=== PATIENT | female | born 1965 | race Two or more races ===

== ENCOUNTER 2020-05-01 10:35 | Emergency (ER) | payer SELFPAY ==
[~2020-05-01] VITALS: Ht 121.9 cm; Wt 59.0 kg
[2020-05-01] MEDS ORDERED: SODIUM CHLORIDE 0.9% 1,000 ML IV ONE (12:29)
[2020-05-01] MEDS ORDERED: ACETAMINOPHEN 325 MG TAB PO ONE (12:30)
[2020-05-01] MEDS ORDERED: ONDANSETRON HCL 4 MG/2 ML VIAL IV ONE (12:30)
[2020-05-01 14:08] VITALS: BP 108/80
[2020-05-01 14:08] LABS: Basophils # (auto) 0 10 ^3/uL (0-0.2); Basophils % (auto) 0.6 % (0.0-2.0); Eosinophils # (auto) 0 10 ^3/uL (0-0.8); Hematocrit 37.9 % (36.0-46.0); Lymphocytes # (auto) 0.9 10 ^3/uL (0.4-5.4); Mean Corpuscular Hemoglobin 29.2 pg (28.0-32.0); Mean Corpuscular Hgb Conc. 34.4 g/dL (32.0-36.0); Monocytes # (auto) 0.3 10 ^3/uL (0-1.3); Monocytes % (auto) 7.3 % (0.0-12.0); Neutrophils # (auto) 2.9 10 ^3/uL (1.6-8.6); Neutrophils % (auto) 70.1 % (37.0-80.0); Nucleated Red Blood Cells % 0.1 %; Platelet Count (auto) 164 10^3/uL (140-450); Red Blood Cells 4.46 10^6/uL (4.0-5.20); Red Cell Distribution Width 13.8 % (11.8-14.3); White Blood Cell 4.1 10^3/uL (4.4-10.8)
[2020-05-01 14:16] LABS: Urine Bacteria NONE SEEN /hpf (None Seen); Urine Blood Negative /uL (Negative); Urine Specific Gravity 1.006 (1.001-1.035); Urine WBC 1 /hpf (0 - 5)
[2020-05-01 14:30] LABS: Albumin 3.5 g/dL (3.4-5.0); BUN/Creatinine Ratio 12.2; Calcium 7.9 mg/dL (8.5-10.1); Potassium 3.9 mmol/L (3.5-5.1)
[2020-05-01 14:33] LABS: Bilirubin, Total 0.5 mg/dL (0.2-1.0); Total Protein 7.3 g/dL (6.4-8.2)
== END 2020-05-01 15:41 | disposition home or self-care (01) ==
LOC: ER 10:35
DX: E11.65 Type 2 diabetes mellitus with hyperglycemia (principal); R11.2 Nausea with vomiting, unspecified; E78.5 Hyperlipidemia, unspecified; I10 Essential (primary) hypertension; Z88.8 Allergy status to other drugs, medicaments and biological substances
CPT/HCPCS: 36415; 70450; 80053; 81001; 82962; 85025; 93005; 96361; 96374; 99285; J2405

== ENCOUNTER 2020-05-03 17:20 | Inpatient (IN) | payer SELFPAY ==
[~2020-05-03] VITALS: Ht 144.8 cm; Wt 57.5 kg
[2020-05-03] MEDS ORDERED: ACETAMINOPHEN 500 MG TAB PO ONE (17:45)
[2020-05-03 18:35] LABS: Basophils # (auto) 0 10 ^3/uL (0-0.2); Basophils % (auto) 0.2 % (0.0-2.0); Eosinophils # (auto) 0 10 ^3/uL (0-0.8); Hematocrit 37.4 % (36.0-46.0); Hemoglobin 12.7 g/dL (12.2-16.2); Lymphocytes # (auto) 1.1 10 ^3/uL (0.4-5.4); Lymphocytes % (auto) 23.8 % (10.0-50.0); Mean Corpuscular Hemoglobin 28.8 pg (28.0-32.0); Mean Corpuscular Volume 84.5 fL (80.0-100.0); Monocytes # (auto) 0.3 10 ^3/uL (0-1.3); Monocytes % (auto) 6.3 % (0.0-12.0); Neutrophils # (auto) 3.1 10 ^3/uL (1.6-8.6); Neutrophils % (auto) 69.7 % (37.0-80.0); Nucleated Red Blood Cells % 0.1 %; Platelet Count (auto) 194 10^3/uL (140-450); Red Blood Cells 4.43 10^6/uL (4.0-5.20); Red Cell Distribution Width 13.8 % (11.8-14.3); White Blood Cell 4.4 10^3/uL (4.4-10.8)
[2020-05-03] MEDS ORDERED: SODIUM CHLORIDE 0.9% 1,000 ML IV ONE (18:44)
[2020-05-03] MEDS ORDERED: InsuLIN REG 1unit/0.01ml Soln (100units/ml) IV ONE (18:45)
[2020-05-03 18:46] LABS: Albumin 3.3 g/dL (3.4-5.0); Anion Gap 10 (5-15); BUN/Creatinine Ratio 8.7; Blood Urea Nitrogen 6 mg/dL (7-18); Carbon Dioxide 23 mmol/L (21-32); Chloride 97 mmol/L (98-107); GFR African American 113 mL/min; GFR Non-African American 94 mL/min; Glucose 289 mg/dL (74-106); Potassium 3.8 mmol/L (3.5-5.1); Sodium 130 mmol/L (136-145)
[2020-05-03 18:49] LABS: Alanine Aminotransferase 30 U/L (13-56); Alkaline Phosphatase 79 U/L (45-117); Aspartate Aminotransferase 32 U/L (15-37); Bilirubin, Total 0.4 mg/dL (0.2-1.0); Total Protein 7.2 g/dL (6.4-8.2)
[2020-05-03 19:03] LABS: Lactic Acid w/Reflex 3.4 mmol/L (0.4-2.0)
[2020-05-03] MEDS ORDERED: INSULIN LANTUS (GLARGINE) 1 /0.01ml (100units/ml) SC ONE (19:30)
[2020-05-03] MEDS ORDERED: MORPHINE SULF INJ 2 MG/ML SYRINGE 1ML IV PRN ×3 (19:30→22:30)
[2020-05-03] MEDS ORDERED: NITROGLYCERIN 0.4 MG SL TAB SL PRN ×2 (19:30→22:30)
[2020-05-03 19:38] LABS: Urine Bacteria FEW /hpf (None Seen); Urine Blood Negative /uL (Negative); Urine Specific Gravity 1.007 (1.001-1.035); Urine WBC 3 /hpf (0 - 5)
--- NOTE | 2020-05-03 21:55 | NUR ---
Report received from. VALERIE ROY brought to bed. Patient instructed on need to notify staff immediately if any N/V or change in how she feels. Patient educated on hospital policies and visiting hrs. All questions and concerns addressed, patient verbalized understanding of all education and instruction.
[2020-05-03 22:00] VITALS: BP 119/65
[2020-05-03] MEDS ORDERED: GLIP10TA9 PO (22:06)
[2020-05-03] MEDS ORDERED: METF-370 PO (22:06)
[2020-05-03] MEDS ORDERED: LOSA-69 PO (22:06)
[2020-05-03] MEDS ORDERED: DEXTROSE (50%) 50ML SYRG IV PRN (22:30)
[2020-05-03] MEDS ORDERED: hydrALAZINE HCL 20 MG/ML VL IV PRN (22:30)
[2020-05-03] MEDS ORDERED: ALUM & MAG HYDROX-SIMETH LIQ(MAALOX) 30 ML PO PRN (22:30)
[2020-05-03] MEDS ORDERED: CALCIUM CHL 100MG/ML 500 MG in D5W 5% 100 ML IV ONE (22:30)
[2020-05-03] MEDS ORDERED: DOCUSATE SOD 100 MG CAP PO PRN (22:30)
[2020-05-03] MEDS ORDERED: HYDROcodone-ACET 5/325MG TAB PO PRN (22:30)
[2020-05-03] MEDS: SODIUM CHLORIDE 0.9% 1,000 ML IV SCH (23:13)
[2020-05-03] MEDS ORDERED: CALCIUM CHLOR(10%) 100MG/ML 10ML SYRINGE IV ONE (23:31)
[2020-05-04] MEDS: ACCU-CHEK COMFORT CURVE STRIP VI SCH ×4 (00:52→18:02)
[2020-05-04 05:00] VITALS: BP 125/59
[2020-05-04] MEDS: SODIUM CHLORIDE 0.9% 1,000 ML IV SCH ×2 (05:12→08:48)
[2020-05-04] MEDS: InsuLIN REG 1unit/0.01ml Soln (100units/ml) SC SCH ×4 (05:58→18:02)
[2020-05-04 06:00] LABS: Basophils # (auto) 0 10 ^3/uL (0-0.2); Basophils % (auto) 0.3 % (0.0-2.0); Eosinophils # (auto) 0 10 ^3/uL (0-0.8); Hematocrit 34.9 % (36.0-46.0); Hemoglobin 11.7 g/dL (12.2-16.2); Lymphocytes # (auto) 1.1 10 ^3/uL (0.4-5.4); Lymphocytes % (auto) 25.9 % (10.0-50.0); Mean Corpuscular Hemoglobin 28.5 pg (28.0-32.0); Mean Corpuscular Hgb Conc. 33.5 g/dL (32.0-36.0); Mean Corpuscular Volume 84.9 fL (80.0-100.0); Monocytes # (auto) 0.2 10 ^3/uL (0-1.3); Monocytes % (auto) 5.5 % (0.0-12.0); Neutrophils % (auto) 68.3 % (37.0-80.0); Nucleated Red Blood Cells % 0.5 %; Platelet Count (auto) 188 10^3/uL (140-450); Red Blood Cells 4.11 10^6/uL (4.0-5.20); Red Cell Distribution Width 13.9 % (11.8-14.3); White Blood Cell 4.3 10^3/uL (4.4-10.8)
[2020-05-04 06:20] LABS: Partial Thromboplastin Time 28.8 sec (23.64-32.05)
[2020-05-04 06:21] LABS: Potassium 3.5 mmol/L (3.5-5.1)
[2020-05-04 06:40] LABS: Albumin 2.9 g/dL (3.4-5.0); Bilirubin, Total 0.3 mg/dL (0.2-1.0); Phosphorus 3.2 mg/dL (2.5-4.90); Total Protein 6.4 g/dL (6.4-8.2)
[2020-05-04 08:00] VITALS: BP 117/59
[2020-05-04] MEDS: CALCIUM W/VIT D (600MG/400IU) TAB PO SCH ×2 (08:20→18:01)
[2020-05-04] MEDS: cefTRIAXone 1GM/50ML D5W 50 ML IV SCH (08:48)
[2020-05-04 09:00] VITALS: BP 117/59
[2020-05-04] MEDS: AZITHROMYCIN 500MG/ 250ML 250 ML IV SCH (09:56)
[2020-05-04] MEDS: LOSARTAN POTASSIUM 50 MG TAB PO SCH (09:57)
[2020-05-04] MEDS: ENOXAPARIN SOD 40 MG/0.4 ML SYRINGE SC SCH (09:57)
[2020-05-04] MEDS: FAMOTIDINE 20 MG TAB PO SCH ×2 (09:57→21:59)
--- NOTE | 2020-05-04 10:55 | NUR ---
Made MD Zhou aware of spiking temps despite cooling measures. No PRN available. Per STAT orders to do COVID swab and tx patient to isolation Wing. Will implement orders.
--- NOTE | 2020-05-04 11:05 | NUR ---
Patient transferred to COVID unit as per MD order. Per hide measuring machine operator Nahid transfer patient immediately, call COVID RN post transfer for report.
[2020-05-04] MEDS ORDERED: FUROSEMIDE 40 MG/4 ML VIAL IV ONE (11:15)
[2020-05-04] MEDS ORDERED: guaiFENesin-DM 100/10mg/5ml SYR PO PRN (11:15)
--- NOTE | 2020-05-04 12:00 | NUR ---
PT ARRIVAL TO UNIT. NO DISTRESS NOTED AT TIME OF ARRIVAL PT ON ROOM AIR. VS WNL. PT TRANSFERRED WITH THE HELP OF STAFF TO ROOM 240-B
--- NOTE | 2020-05-04 12:11 | NUR ---
REPORT RECEIVED FROM EAMON PEREZ
[2020-05-04] MEDS: ALBUTEROL SULF HFA 90MCG INH 200DOSE IN SCH ×2 (14:00→21:59)
--- NOTE | 2020-05-04 14:50 | NUR ---
PT TEMPERATURE 103.1 COOLING MEASURES INITIATED AND ACETAMINOPHEN ADMINISTERED
[2020-05-04] MEDS: ACETAMINOPHEN 500 MG TAB PO PRN (15:17)
--- NOTE | 2020-05-04 16:10 | NUR ---
TEMP REASSESSMENT TEMP 100.3. COOLING MEASURE CONTINUED WILL CONTINUE TO MONITOR
[2020-05-04 17:00] VITALS: BP 91/58
[2020-05-04] MEDS ORDERED: MULT1TAB61 PO (17:26)
[2020-05-04] MEDS ORDERED: ONDA-144 PO (17:26)
[2020-05-04] MEDS ORDERED: ATOR10TA52 PO (17:33)
[2020-05-04 18:02] VITALS: BP 117/59
--- NOTE | 2020-05-04 18:22 | NUR ---
PT CURRENT VITAL SIGNS BP 88/48 WITH REDRAW 91/52 SPO2 90%. PT PUT ON 2L NC WITH SPO2 95% TEMP: 99.2 RR:18 HR: 88
--- NOTE | 2020-05-04 18:36 | NUR ---
PT SUCCESSFULLY MOVED TO ROOM 237, NO DISTRESS NOTED DURING TRANSFER. PT AMBULATED WITH STEADY GAIT.
--- NOTE | 2020-05-04 18:36 | NUR ---
PAGED ON-CALL HOSPITALIST RE: HYPOTENSION. PT CURRENT BP 91/44. PREVIOUS READING 82/48
--- NOTE | 2020-05-04 18:42 | NUR ---
RETURNED PAGE NEW ORDERS RECIEVED FOR 500ML BOLUS. WILL IMPLEMENT ORDERS STAT
[2020-05-04] MEDS ORDERED: SODIUM CHLORIDE 0.9% 500 ML IV ONE (19:00)
[2020-05-04] MEDS: ONDANSETRON HCL 4 MG/2 ML VIAL IV PRN (19:02)
--- NOTE | 2020-05-04 19:12 | NUR ---
500ML BOLUS COMPLETE REPEAT B/P 116/70
[2020-05-04 20:52] VITALS: BP 114/71
--- NOTE | 2020-05-04 21:59 | NUR ---
MDI ADMINISTERED BY CHRIS LOFTON.
[2020-05-05] MEDS: ACCU-CHEK COMFORT CURVE STRIP VI SCH ×4 (00:06→16:59)
[2020-05-05] MEDS: InsuLIN REG 1unit/0.01ml Soln (100units/ml) SC SCH ×4 (00:17→17:33)
[2020-05-05 00:22] VITALS: BP 118/62
[2020-05-05 05:24] VITALS: BP 128/77
[2020-05-05] MEDS: ALBUTEROL SULF HFA 90MCG INH 200DOSE IN SCH ×3 (05:27→22:00)
--- NOTE | 2020-05-05 05:27 | NUR ---
MDI ADMINISTERED BY CHRIS LOFTON, PT WITH SPO2 96%, HR 78, RR 16. WILL CONTINUE TO MONITOR PT.
[2020-05-05] MEDS: ACETAMINOPHEN 500 MG TAB PO PRN ×3 (05:28→20:00)
--- NOTE | 2020-05-05 07:00 | NUR ---
Closing Note Patient lying in bed, awake and alert. Cooling measures remain in place, temperature reassessment at 102.3 Fahrenheit after Tylenol, will make dayshift RN aware. Bed in lowest locked position, side rails up x2, call light within reach. Will endorse care to dayshift RN.
--- NOTE | 2020-05-05 07:30 | NUR ---
Opening Shift Note Assumed care of patient, awake and alert. No S/S of distress,SOB with activity, denies pain. Instructed on POC and to call for assist PRN, will continue to monitor for changes Q1hr and PRN.
[2020-05-05 09:07] VITALS: BP 110/57
[2020-05-05] MEDS ORDERED: ENOXAPARIN SOD 40 MG/0.4 ML SYRINGE SC SCH (10:00)
[2020-05-05] MEDS: CALCIUM W/VIT D (600MG/400IU) TAB PO SCH ×2 (10:32→16:59)
[2020-05-05] MEDS: ZINC SULFATE 220mg CAP or TAB PO SCH (10:33)
[2020-05-05] MEDS: AZITHROMYCIN 500MG/ 250ML 250 ML IV SCH (10:33)
[2020-05-05] MEDS: FAMOTIDINE 20 MG TAB PO SCH ×2 (10:33→21:57)
[2020-05-05] MEDS: cefTRIAXone 1GM/50ML D5W 50 ML IV SCH (10:33)
[2020-05-05] MEDS: CHOLECALCIFEROL (VITD3) 1,000IU=25mCg TAB PO SCH (10:34)
[2020-05-05] MEDS: ENOXAPARIN SOD 40 MG/0.4 ML SYRINGE SC SCH ×2 (10:34→21:57)
[2020-05-05] MEDS: LOSARTAN POTASSIUM 50 MG TAB PO SCH (10:37)
[2020-05-05 13:16] LABS: Alanine Aminotransferase 28 U/L (13-56); Albumin 2.8 g/dL (3.4-5.0); Anion Gap 9 (5-15); Aspartate Aminotransferase 35 U/L (15-37); BUN/Creatinine Ratio 8.1; Bilirubin, Direct 0.1 mg/dL (0-0.2); Blood Urea Nitrogen 5 mg/dL (7-18); Calcium 7.6 mg/dL (8.5-10.1); Carbon Dioxide 25 mmol/L (21-32); Chloride 100 mmol/L (98-107); GFR African American 128 mL/min; GFR Non-African American 106 mL/min; Glucose 318 mg/dL (74-106); Potassium 3.1 mmol/L (3.5-5.1); Sodium 134 mmol/L (136-145); Uric Acid 1.8 mg/dL (2.6-6.0)
[2020-05-05 13:26] LABS: Alkaline Phosphatase 59 U/L (45-117); Bilirubin, Total 0.3 mg/dL (0.2-1.0); Total Protein 6.8 g/dL (6.4-8.2)
[2020-05-05 13:30] VITALS: BP 90/73
[2020-05-05 17:00] VITALS: BP 114/73
[2020-05-05] MEDS ORDERED: FUROSEMIDE 20 MG/2 ML VIAL IV ONE (17:15)
[2020-05-05] MEDS ORDERED: POTASSIUM CHL 20MEQ/100ML 100 ML IV ONE (17:15)
[2020-05-05] MEDS ORDERED: DexAMETHasone 4 MG TAB PO ONE (17:15)
[2020-05-05] MEDS ORDERED: POTASSIUM CHL 20 Meq TABLET PO ONE (18:00)
[2020-05-05] MEDS: FUROSEMIDE 20 MG/2 ML VIAL IV SCH (18:00)
[2020-05-05] MEDS: SOD CHL 0.9%/ KCL 40MEQ 1,000 ML IV SCH (18:22)
--- NOTE | 2020-05-05 19:15 | NUR ---
OPENING SHIFT NOTE: ASSUMED CARE OF PATIENT. PATIENT AWAKE AND ALERT AND ORIENTED X 4, NO S/S OF SOB OR DISTRESS. BED IN LOWEST LOCKED POSITION WITH TWO SIDE RAILS RAISED AND CALL [place] WITHIN REACH. O2 SATURATIONS 96% ON 2L NC WITH RESPIRATIONS EVEN AND UNLABORED. PROPER ISOLATION PRECAUTIONS IN PLACE AND ASSESSMENT DONE WITH PROVIDED PPE. INSTRUCTED ON POC AND ENCOURAGED TO USE CALL [place] FOR ASSISTANCE, ALL QUESTIONS AND CONCERNS ADDRESSED, PATIENT VERBALIZES UNDERSTANDING. WILL CONTINUE TO MONITOR Q1 HR AND PRN.
[2020-05-05 20:00] VITALS: BP_SYST 121; BP_SYST 147; BP_SYST 98; BP_DIAS 57; BP_DIAS 69; BP_DIAS 71
--- NOTE | 2020-05-05 20:00 | NUR ---
TEMP 100.8 F, COOLING MEASURES IN PLACE AND TYLENOL GIVEN, SEE EMAR FOR DETAILS. WILL CONTINUE TO MONITOR
[2020-05-05] MEDS: DexAMETHasone 4 MG TAB PO SCH (21:57)
[2020-05-06] VITALS (7 sets, daily range): BP systolic 105–142; BP diastolic 60–93
[2020-05-06] MEDS: ALBUTEROL SULF HFA 90MCG INH 200DOSE IN SCH ×3 (06:24→22:40)
[2020-05-06] MEDS: FUROSEMIDE 20 MG/2 ML VIAL IV SCH ×2 (06:24→18:13)
[2020-05-06] MEDS: ACCU-CHEK COMFORT CURVE STRIP VI SCH ×4 (06:24→18:23)
--- NOTE | 2020-05-06 06:24 | NUR ---
MDI ADMINISTERED BY CHRIS CASTANEDA, SPO2 97% AND HR 68.
[2020-05-06] MEDS: SOD CHL 0.9%/ KCL 40MEQ 1,000 ML IV SCH ×2 (06:25→22:39)
[2020-05-06] MEDS: InsuLIN REG 1unit/0.01ml Soln (100units/ml) SC SCH ×4 (06:25→18:28)
[2020-05-06 06:51] LABS: Basophils # (auto) 0 10 ^3/uL (0-0.2); Eosinophils # (auto) 0 10 ^3/uL (0-0.8); Hematocrit 36.7 % (36.0-46.0); Hemoglobin 12.4 g/dL (12.2-16.2); Lymphocytes # (auto) 0.5 10 ^3/uL (0.4-5.4); Lymphocytes % (auto) 12.2 % (10.0-50.0); Mean Corpuscular Hemoglobin 28.7 pg (28.0-32.0); Mean Corpuscular Hgb Conc. 33.8 g/dL (32.0-36.0); Mean Corpuscular Volume 84.8 fL (80.0-100.0); Monocytes # (auto) 0.1 10 ^3/uL (0-1.3); Monocytes % (auto) 3.2 % (0.0-12.0); Neutrophils # (auto) 3.7 10 ^3/uL (1.6-8.6); Neutrophils % (auto) 84.6 % (37.0-80.0); Nucleated Red Blood Cells % 0.2 %; Platelet Count (auto) 246 10^3/uL (140-450); Red Blood Cells 4.33 10^6/uL (4.0-5.20); Red Cell Distribution Width 13.7 % (11.8-14.3); White Blood Cell 4.4 10^3/uL (4.4-10.8)
[2020-05-06 07:16] LABS: Potassium 4.3 mmol/L (3.5-5.1)
--- NOTE | 2020-05-06 07:20 | NUR ---
OPENING NOTE ASSUMED CARE OF PT. ALERT AND ORIENTED. NO S/S OF SOB/DISTRESS NOTED. BED SET TO LOWEST POSITION/LOCKED. BEDSIDE RAILS UP X2. CALL LIGHT WITHIN REACH. INSTRUCTED PATIENT TO CALL FOR ASSISTANCE. UPDATED ON POC. PT VERBALIZED UNDERSTANDING. WILL CONTINUE TO MONITOR Q 1HR AND PRN.
[2020-05-06 07:37] LABS: Albumin 2.8 g/dL (3.4-5.0); BUN/Creatinine Ratio 18.9; Calcium 8.3 mg/dL (8.5-10.1); Magnesium 2.5 mg/dL (1.6-2.6)
[2020-05-06 07:40] LABS: Bilirubin, Total 0.5 mg/dL (0.2-1.0); Phosphorus 3.3 mg/dL (2.5-4.90); Total Protein 7.1 g/dL (6.4-8.2)
[2020-05-06] MEDS: CALCIUM W/VIT D (600MG/400IU) TAB PO SCH ×2 (08:00→18:14)
[2020-05-06] MEDS: cefTRIAXone 1GM/50ML D5W 50 ML IV SCH (10:06)
[2020-05-06] MEDS: AZITHROMYCIN 500MG/ 250ML 250 ML IV SCH (10:07)
[2020-05-06] MEDS: ZINC SULFATE 220mg CAP or TAB PO SCH (10:07)
[2020-05-06] MEDS: LOSARTAN POTASSIUM 50 MG TAB PO SCH (10:08)
[2020-05-06] MEDS: FAMOTIDINE 20 MG TAB PO SCH ×2 (10:08→22:40)
[2020-05-06] MEDS: CHOLECALCIFEROL (VITD3) 1,000IU=25mCg TAB PO SCH (10:08)
[2020-05-06] MEDS: DexAMETHasone 4 MG TAB PO SCH ×2 (10:08→22:40)
[2020-05-06] MEDS: ENOXAPARIN SOD 40 MG/0.4 ML SYRINGE SC SCH ×2 (10:09→22:42)
--- NOTE | 2020-05-06 12:45 | NUR ---
MD DR. BATISTA AT BEDSIDE DISCUSSED POC WITH PATIENT. PER MD KEEP PATIENT O2 SATURATION ABOVE 93%
[2020-05-06] MEDS: LORazepam 0.5 MG TAB PO PRN (18:53)
--- NOTE | 2020-05-06 19:30 | NUR ---
OPENING SHIFT NOTE: ASSUMED CARE OF PATIENT. PATIENT IS RESTING WITH EYES CLOSED, RESPIRATIONS EVEN AND UNLABORED, NO S/S OF SOB OR DISTRESS. 02 SATURATION 96% ON 2L NC. PROPER ISOLATION PRECAUTIONS IN PLACE WITH BED IN LOWEST LOCKED POSITION WITH TWO DRAMATIC ARTS HISTORIAN RAILS RAISED AND CALL [place] WITHIN REACH. WILL CONTINUE TO MONITOR Q1 HR AND PRN.
--- NOTE | 2020-05-06 22:30 | NUR ---
DAUGHTER NOHEMI CALLED AND PROVIDED CORRECT PASSWORD, UPDATED ON POC, ALL QUESTIONS AND CONCERNS ADDRESSED.
--- NOTE | 2020-05-06 22:40 | NUR ---
MDI ADMINISTERED BY CHRIS CASTANEDA.
[2020-05-06] MEDS: INSULIN LANTUS (GLARGINE) 1 /0.01ml (100units/ml) SC SCH (22:41)
[2020-05-07] MEDS: LORazepam 0.5 MG TAB PO PRN (01:21)
[2020-05-07 05:15] VITALS: BP 121/70
[2020-05-07] MEDS: FUROSEMIDE 20 MG/2 ML VIAL IV SCH ×2 (05:48→18:28)
[2020-05-07] MEDS: ALBUTEROL SULF HFA 90MCG INH 200DOSE IN SCH ×3 (05:48→22:27)
--- NOTE | 2020-05-07 06:20 | NUR ---
PATIENT STATES "I FEEL LIKE I CAN'T CATCH MY BREATH, AND IT'S HARDER TO BREATHE THAN YESTERDAY." RESPIRATIONS ARE SHALLOW, EVEN, AND UNLABORED. O2 SATURATION WAS 89% ON 2L NC, NOW AT 92% ON 5L NC. MDI ADMINISTERED AND PATIENT IS SELF PRONING AND SAYS SHE FEELS SOME RELIEF. WILL CONTINUE TO MONITOR
[2020-05-07] MEDS: ACCU-CHEK COMFORT CURVE STRIP VI SCH ×4 (06:21→18:27)
[2020-05-07] MEDS: InsuLIN REG 1unit/0.01ml Soln (100units/ml) SC SCH ×4 (06:23→18:58)
[2020-05-07 06:37] LABS: Basophils # (auto) 0 10 ^3/uL (0-0.2); Basophils % (auto) 0.1 % (0.0-2.0); Eosinophils # (auto) 0 10 ^3/uL (0-0.8); Hematocrit 35.6 % (36.0-46.0); Hemoglobin 12.1 g/dL (12.2-16.2); Lymphocytes # (auto) 0.7 10 ^3/uL (0.4-5.4); Lymphocytes % (auto) 10.6 % (10.0-50.0); Mean Corpuscular Hemoglobin 28.5 pg (28.0-32.0); Mean Corpuscular Hgb Conc. 34.1 g/dL (32.0-36.0); Mean Corpuscular Volume 83.5 fL (80.0-100.0); Monocytes # (auto) 0.4 10 ^3/uL (0-1.3); Neutrophils # (auto) 5.4 10 ^3/uL (1.6-8.6); Neutrophils % (auto) 83.3 % (37.0-80.0); Platelet Count (auto) 312 10^3/uL (140-450); Red Blood Cells 4.26 10^6/uL (4.0-5.20); Red Cell Distribution Width 13.7 % (11.8-14.3); White Blood Cell 6.4 10^3/uL (4.4-10.8)
[2020-05-07 06:44] LABS: Potassium 4.5 mmol/L (3.5-5.1)
[2020-05-07 07:12] LABS: Albumin 2.9 g/dL (3.4-5.0); BUN/Creatinine Ratio 19.4; Bilirubin, Total 0.3 mg/dL (0.2-1.0); CRP High Sensitivity 7.3 mg/dL (< 0.3); Calcium 8.7 mg/dL (8.5-10.1); Magnesium 2.5 mg/dL (1.6-2.6); Phosphorus 4.1 mg/dL (2.5-4.90); Total Protein 7.1 g/dL (6.4-8.2)
[2020-05-07 08:00] VITALS: BP 139/89
[2020-05-07] MEDS ORDERED: methylPREDNISolone SOD SUCC 40 MG/ML VL IV ONE (13:30)
[2020-05-07] MEDS ORDERED: TOCILIZUMAB 400 MG in SODIUM CHL 0.9% 80 ML IV ONE (13:30)
[2020-05-07] MEDS ORDERED: diphenhdrAMINE HCL 50 MG/1 ML VL IV ONE (13:30)
[2020-05-07] MEDS ORDERED: ACETAMINOPHEN 650 mg PER 20 mL UD PO ONE (13:30)
[2020-05-07] MEDS: CALCIUM W/VIT D (600MG/400IU) TAB PO SCH ×2 (13:35→18:27)
[2020-05-07] MEDS: SOD CHL 0.9%/ KCL 40MEQ 1,000 ML IV SCH ×2 (13:36→22:35)
[2020-05-07] MEDS: ZINC SULFATE 220mg CAP or TAB PO SCH (13:36)
[2020-05-07] MEDS: cefTRIAXone 1GM/50ML D5W 50 ML IV SCH (13:36)
[2020-05-07] MEDS: FAMOTIDINE 20 MG TAB PO SCH ×2 (13:37→22:00)
[2020-05-07] MEDS: CHOLECALCIFEROL (VITD3) 1,000IU=25mCg TAB PO SCH (13:37)
[2020-05-07] MEDS: DexAMETHasone 4 MG TAB PO SCH ×2 (13:37→22:26)
[2020-05-07] MEDS: LOSARTAN POTASSIUM 50 MG TAB PO SCH (13:37)
[2020-05-07] MEDS: AZITHROMYCIN 250 MG TAB PO SCH (13:38)
--- NOTE | 2020-05-07 14:30 | NUR ---
Nutrition Assessment Notes please see attached link for complete assessment Est. Needs BW 57 [id number] kcals (223-25 kcal/kgBW). 57-62 gms/day (1.0-1.1gm/kgBW). Will continue to monitor pertinent labs and reassess nutrient need prn. Addendum: 05/07/20 at [address] Amended: Links added.
[2020-05-07 15:27] VITALS: BP 120/67
[2020-05-07] MEDS: metFORMIN HYDROCHLORIDE 500 MG TAB PO SCH (18:48)
[2020-05-07] MEDS: glipiZIDE 5 MG TAB PO SCH (18:49)
[2020-05-07 19:18] VITALS: BP 125/66
--- NOTE | 2020-05-07 19:50 | NUR ---
Opening Shift Note Assumed care of patient, awake and alert. No S/S of distress/SOB or pain. Instructed on POC and to call for assist PRN, will continue to monitor for changes Q1hr and PRN.BED IN LOW POSITION AND CALL LIGHT WITHIN REACH
[2020-05-07 22:00] VITALS: BP 106/56
[2020-05-07] MEDS: ENOXAPARIN SOD 60 MG/0.6 ML SYRINGE SC SCH (22:27)
--- NOTE | 2020-05-07 22:27 | NUR ---
educated patient on how to use IS patient verbalized understanding.
[2020-05-07] MEDS: INSULIN LANTUS (GLARGINE) 1 /0.01ml (100units/ml) SC SCH (22:36)
[2020-05-08] MEDS: InsuLIN REG 1unit/0.01ml Soln (100units/ml) SC SCH ×5 (00:32→23:51)
--- NOTE | 2020-05-08 01:02 | NUR ---
patient running bradycardia in the 40's-50's heart rate. patient denies sob distress or pain. awake and alert. per telemonitor diego patient has been running bradycardia the night before. informed patient to call assistance. patient verbalized understanding.
[2020-05-08 05:03] VITALS: BP 129/79
[2020-05-08] MEDS: ALBUTEROL SULF HFA 90MCG INH 200DOSE IN SCH ×4 (05:31→22:07)
[2020-05-08] MEDS: FUROSEMIDE 20 MG/2 ML VIAL IV SCH ×2 (05:32→17:35)
[2020-05-08] MEDS: ACCU-CHEK COMFORT CURVE STRIP VI SCH ×5 (05:33→23:49)
--- NOTE | 2020-05-08 05:33 | NUR ---
MDI ADMINISTERED BY CHRIS BAY .
[2020-05-08] MEDS: glipiZIDE 5 MG TAB PO SCH ×2 (06:36→17:36)
--- NOTE | 2020-05-08 07:03 | NUR ---
Report given to dayshift RN. Patient denies sob distress or pain.
--- NOTE | 2020-05-08 07:30 | NUR ---
Opening Shift Note Assumed care of patient, awake, alert, and oriented. No S/S of distress/SOB or pain. Bed in lowest/locked position, bed rails up x2, call light within reach. Instructed on POC and to call for assist PRN. Will continue to monitor for changes Q1hr and PRN.
[2020-05-08 09:00] VITALS: BP 116/76
[2020-05-08] MEDS: ZINC SULFATE 220mg CAP or TAB PO SCH (09:03)
[2020-05-08] MEDS: LOSARTAN POTASSIUM 50 MG TAB PO SCH (09:03)
[2020-05-08] MEDS: CALCIUM W/VIT D (600MG/400IU) TAB PO SCH ×2 (09:03→17:36)
[2020-05-08] MEDS: ENOXAPARIN SOD 60 MG/0.6 ML SYRINGE SC SCH ×2 (09:04→22:32)
[2020-05-08] MEDS: AZITHROMYCIN 250 MG TAB PO SCH (09:04)
[2020-05-08] MEDS: DexAMETHasone 4 MG TAB PO SCH ×2 (09:04→22:32)
[2020-05-08] MEDS: CHOLECALCIFEROL (VITD3) 1,000IU=25mCg TAB PO SCH (09:04)
[2020-05-08] MEDS: cefTRIAXone 1GM/50ML D5W 50 ML IV SCH (10:32)
[2020-05-08] MEDS: metFORMIN HYDROCHLORIDE 500 MG TAB PO SCH ×2 (10:32→17:35)
[2020-05-08] MEDS: FAMOTIDINE 20 MG TAB PO SCH ×2 (10:33→22:32)
[2020-05-08] MEDS: SOD CHL 0.9%/ KCL 40MEQ 1,000 ML IV SCH (11:31)
[2020-05-08] MEDS ORDERED: diphenhdrAMINE HCL 50 MG/1 ML VL IV ONE (12:30)
[2020-05-08] MEDS ORDERED: methylPREDNISolone SOD SUCC 40 MG/ML VL IV ONE (12:30)
[2020-05-08] MEDS ORDERED: ACETAMINOPHEN 650 mg PER 20 mL UD PO ONE (12:30)
[2020-05-08] MEDS ORDERED: TOCILIZUMAB 400 MG in SODIUM CHL 0.9% 80 ML IV ONE (13:00)
[2020-05-08 13:16] VITALS: BP 134/70
--- NOTE | 2020-05-08 14:02 | NUR ---
MDI GIVEN BY ELIF PEREZ. PT TOL. KESSLER
[2020-05-08 16:27] VITALS: BP 117/71
--- NOTE | 2020-05-08 19:10 | NUR ---
opening note pt A&Ox4. respirations even and nonlabored on 2Lnc. pt is ambulatory. pt denies pain or discomfort at this time, will continue to monitor. POC discussed. bed in low locked position, call light within reach.
[2020-05-08 21:19] VITALS: BP_SYST 112; BP_SYST 138; BP_DIAS 61; BP_DIAS 67
[2020-05-08] MEDS: INSULIN LANTUS (GLARGINE) 1 /0.01ml (100units/ml) SC SCH (22:33)
[2020-05-09] MEDS: SOD CHL 0.9%/ KCL 40MEQ 1,000 ML IV SCH ×2 (01:15→14:35)
[2020-05-09 05:00] VITALS: BP 115/57
[2020-05-09] MEDS: ALBUTEROL SULF HFA 90MCG INH 200DOSE IN SCH ×3 (06:00→22:19)
[2020-05-09] MEDS: ACCU-CHEK COMFORT CURVE STRIP VI SCH ×4 (06:07→23:45)
[2020-05-09] MEDS: InsuLIN REG 1unit/0.01ml Soln (100units/ml) SC SCH ×4 (06:10→23:49)
[2020-05-09] MEDS: glipiZIDE 5 MG TAB PO SCH ×2 (06:18→18:43)
[2020-05-09] MEDS: FUROSEMIDE 20 MG/2 ML VIAL IV SCH ×2 (06:51→18:43)
--- NOTE | 2020-05-09 07:10 | NUR ---
closing note pt A&Ox4. respirations even nonlabored at rest on 2Lnc. pt dangling at bedside. endorsed care to day shift RN.
--- NOTE | 2020-05-09 07:30 | NUR ---
Opening Shift Note Assumed care of patient, awake and alert. No S/S of distress/SOB or pain. Instructed on POC and to call for assist PRN, will continue to monitor for changes Q1hr and PRN. Fall precautions in place per safety protocol.
[2020-05-09] MEDS: CALCIUM W/VIT D (600MG/400IU) TAB PO SCH ×2 (08:30→18:43)
[2020-05-09] MEDS: metFORMIN HYDROCHLORIDE 500 MG TAB PO SCH ×2 (08:30→18:43)
[2020-05-09] MEDS: ZINC SULFATE 220mg CAP or TAB PO SCH (09:47)
[2020-05-09] MEDS: DexAMETHasone 4 MG TAB PO SCH ×2 (09:47→21:59)
[2020-05-09] MEDS: CHOLECALCIFEROL (VITD3) 1,000IU=25mCg TAB PO SCH (09:47)
[2020-05-09] MEDS: FAMOTIDINE 20 MG TAB PO SCH ×2 (09:47→21:59)
[2020-05-09] MEDS: cefTRIAXone 1GM/50ML D5W 50 ML IV SCH (09:47)
[2020-05-09] MEDS: LOSARTAN POTASSIUM 50 MG TAB PO SCH (09:47)
[2020-05-09] MEDS: ENOXAPARIN SOD 60 MG/0.6 ML SYRINGE SC SCH ×2 (09:48→21:59)
[2020-05-09] MEDS: AZITHROMYCIN 250 MG TAB PO SCH (09:48)
[2020-05-09 12:59] VITALS: BP 124/63
--- NOTE | 2020-05-09 15:11 | NUR ---
GROCERY DEPARTMENT MANAGER SPOKE WITH PT'S SPOUSE AND HAL SEPULVEDA [phone] TO OBTAIN COLLATERAL INFORMATION FOR INITIAL ASSESSMENT, PT IS COVID POSITIVE ON ISOLATION. PT IS A 54 YR OLD [place] SPEAKING FEMALE ADMITTED FOR SYNCOPE, HYPOGLECEMIA, COVID. SHE HAS A HX OF DM, MED COMPLIANT BUT NOT MANAGED WELL. PT WAS FULLY INDEPENDENT PRIOR TO ADMISSION. SPOUSE IS ALSO [place] SPEAKING ONLY. SPOUSE STATES THAT PT WAS LAID OFF FROM HER JOB IN JANUARY, SHE IS CURRENTLY RECEIVING UNEMPLOYMENT BUT HE DOES NOT KNOW THE AMOUNT. GROCERY DEPARTMENT MANAGER SPOKE WITH ARINA FROM [facility], HE WILL FOLLOW UP WITH PT 05/10 REGARDING MEDI-SAMI APPLICATION. SINCE JANUARY PT HAS NOT HAD A PCP DUE TO A LACK OF INSURANCE. PT AND SPOUSE RECENTLY MOVED TO THE [facility] FROM [place]. THEY DO NOT HAVE ANY FAMILY IN THE AREA. SPOUSE IS SUPPORTIVE AND ABLE TO ASSIST PT AT HOME NEEDED. SS TO F/U WITH PT FOR ADDITIONAL DC PLANNING PENDING MEDI-SAMI SCREENING. SPOUSE STATES PT IS COPING WELL. SPOUSE IS SELF ISOLATING AT HOME, HE IS SYMPTOM FREE. THEY HAVE A THREE BEDROOM HOME AND PT WILL BE ABLE TO SELF QUARANTINE UPON DC.
[2020-05-09 16:50] VITALS: BP 114/63
--- NOTE | 2020-05-09 19:08 | NUR ---
Endorsed care to night RN. Patient resting, no distress, sob, or pain noted.
--- NOTE | 2020-05-09 19:30 | NUR ---
opening note pt is A&Ox4. respirations even and nonlabored on 3Lnc. pt gets SOB on exertion. pt denies pain at this time, and does not display s/s of distress. bed in low locked position, call light within reach.
[2020-05-09] MEDS: INSULIN LANTUS (GLARGINE) 1 /0.01ml (100units/ml) SC SCH (21:45)
[2020-05-09 22:00] VITALS: BP 107/64
[2020-05-10 05:00] VITALS: BP 102/73
[2020-05-10 05:21] LABS: Basophils # (auto) 0 10 ^3/uL (0-0.2); Basophils % (auto) 0.1 % (0.0-2.0); Eosinophils # (auto) 0 10 ^3/uL (0-0.8); Eosinophils % (auto) 0.1 % (0.0-7.0); Hematocrit 38.6 % (36.0-46.0); Hemoglobin 13.4 g/dL (12.2-16.2); Lymphocytes # (auto) 3.2 10 ^3/uL (0.4-5.4); Lymphocytes % (auto) 42.2 % (10.0-50.0); Mean Corpuscular Hemoglobin 29.3 pg (28.0-32.0); Mean Corpuscular Hgb Conc. 34.7 g/dL (32.0-36.0); Mean Corpuscular Volume 84.2 fL (80.0-100.0); Monocytes # (auto) 0.9 10 ^3/uL (0-1.3); Monocytes % (auto) 12.4 % (0.0-12.0); Neutrophils # (auto) 3.4 10 ^3/uL (1.6-8.6); Neutrophils % (auto) 45.2 % (37.0-80.0); Nucleated Red Blood Cells % 0.2 %; Platelet Count (auto) 556 10^3/uL (140-450); Red Blood Cells 4.59 10^6/uL (4.0-5.20); Red Cell Distribution Width 13.8 % (11.8-14.3); White Blood Cell 7.5 10^3/uL (4.4-10.8)
[2020-05-10 05:24] LABS: Albumin 3.3 g/dL (3.4-5.0); Calcium 9.6 mg/dL (8.5-10.1); Potassium 3.5 mmol/L (3.5-5.1)
[2020-05-10 05:29] LABS: BUN/Creatinine Ratio 38.7; Bilirubin, Total 0.3 mg/dL (0.2-1.0); Total Protein 7.6 g/dL (6.4-8.2)
[2020-05-10] MEDS: SOD CHL 0.9%/ KCL 40MEQ 1,000 ML IV SCH (05:45)
[2020-05-10] MEDS: ONDANSETRON HCL 4 MG/2 ML VIAL IV PRN ×2 (05:46→16:51)
[2020-05-10] MEDS: InsuLIN REG 1unit/0.01ml Soln (100units/ml) SC SCH ×4 (06:00→23:30)
[2020-05-10] MEDS: ACCU-CHEK COMFORT CURVE STRIP VI SCH ×4 (06:20→23:29)
[2020-05-10] MEDS: FUROSEMIDE 20 MG/2 ML VIAL IV SCH (06:58)
[2020-05-10] MEDS: glipiZIDE 5 MG TAB PO SCH ×2 (06:59→17:36)
--- NOTE | 2020-05-10 07:29 | NUR ---
closing note pt resting in left lateral position with eyes closed. no s/s of distress at this time. bed in low locked position, call light within reach.
[2020-05-10] MEDS: ALBUTEROL SULF HFA 90MCG INH 200DOSE IN SCH ×3 (07:49→21:37)
[2020-05-10] MEDS: metFORMIN HYDROCHLORIDE 500 MG TAB PO SCH ×2 (08:52→17:36)
[2020-05-10] MEDS: CALCIUM W/VIT D (600MG/400IU) TAB PO SCH ×2 (08:52→17:36)
[2020-05-10] MEDS: cefTRIAXone 1GM/50ML D5W 50 ML IV SCH (08:52)
[2020-05-10 09:23] VITALS: BP 91/63
[2020-05-10] MEDS: ZINC SULFATE 220mg CAP or TAB PO SCH (09:32)
[2020-05-10] MEDS: DexAMETHasone 4 MG TAB PO SCH ×2 (09:33→23:28)
[2020-05-10] MEDS: FAMOTIDINE 20 MG TAB PO SCH ×2 (09:33→23:28)
[2020-05-10] MEDS: LOSARTAN POTASSIUM 50 MG TAB PO SCH (09:33)
[2020-05-10] MEDS: AZITHROMYCIN 250 MG TAB PO SCH (09:34)
[2020-05-10] MEDS: ENOXAPARIN SOD 60 MG/0.6 ML SYRINGE SC SCH ×2 (09:34→23:28)
[2020-05-10] MEDS: CHOLECALCIFEROL (VITD3) 1,000IU=25mCg TAB PO SCH (09:34)
--- NOTE | 2020-05-10 10:40 | NUR ---
REGARDING OXYGEN: PATIENT OXYGEN REMOVED. 02 SATURATIONS AT 95%. PATIENT AMBULATED AROUND ROOM. 02 SATURATIONS AT 97%. PATIENT DOES NOT COMPLAIN OF SHORTNESS OF BREATH. DOES COMPLAIN OF DIZZINESS AND LIGHTHEADEDNESS. NO CHANGE FROM THIS MORNING.
[2020-05-10] MEDS ORDERED: PYRIDOXINE HCL 50 MG TAB PO ONE (12:15)
[2020-05-10] MEDS ORDERED: MECLIZINE HCL 25 MG TAB PO ONE (12:15)
[2020-05-10 12:29] LABS: BUN/Creatinine Ratio 38.2; Calcium 9.6 mg/dL (8.5-10.1); Potassium 3.9 mmol/L (3.5-5.1)
[2020-05-10 13:00] VITALS: BP 91/51
--- NOTE | 2020-05-10 15:05 | NUR ---
Nutrition Followup Note Wt 57.5kg Pt currently COVID positive in the COVID wing. Pt appetite is good aeb pt with adequate po intake with an avg of 85%x 2 days per RN nutrition doc. Est. Needs BW 57 [id number] kcals (23-25 kcal/kgBW). 57-62 gms/day (1.0-1.1gm/kgBW). Will continue to monitor pertinent labs and reassess nutrient need prn. Labs: BUN 24H. Alb 3.3L BM: 1 BM 05/10 per RN doc Skin: BS 22 low risk, full details in managed care manager Doc PES: Altered nutrition related lab values r.t current chronic medical condition aeb hyperglcyemia, mod hypoalb Comments 1)consider CCHO 45 gm as needs are lower 2) refer to CDE oN dc 3) continue current plan of care Expected Outcomes/Goals: pt will have improved labs F/u mod 3-5 days
[2020-05-10 16:59] VITALS: BP 92/61
[2020-05-10 18:56] VITALS: BP 92/61
[2020-05-10] MEDS: INSULIN LANTUS (GLARGINE) 1 /0.01ml (100units/ml) SC SCH (23:30)
[2020-05-11 06:00] VITALS: BP 122/84
[2020-05-11] MEDS: ACCU-CHEK COMFORT CURVE STRIP VI SCH ×2 (06:33→12:33)
[2020-05-11] MEDS: InsuLIN REG 1unit/0.01ml Soln (100units/ml) SC SCH ×2 (06:33→12:39)
[2020-05-11] MEDS: glipiZIDE 5 MG TAB PO SCH (06:34)
[2020-05-11] MEDS: ALBUTEROL SULF HFA 90MCG INH 200DOSE IN SCH ×2 (07:16→14:49)
--- NOTE | 2020-05-11 07:16 | NUR ---
RT NOTE: MDI GIVEN WITH HOLDING CHAMBER. NO SIGNS OF DISTRESS NOTED AT THIS TIME. ON 2L NC SPO2 96 HR 59 RR 24. WILL CONTINUE TO MONITOR.
--- NOTE | 2020-05-11 07:30 | NUR ---
Opening Shift Note RECEIVED REPORT FROM NOC RN. Assumed care of patient, awake and alert. No S/S of distress/SOB or pain. BED IN LOWEST, LOCKED POSITION WITH SIDERAILS UP x2 AND CALL LIGHT WITHIN REACH. Instructed on POC and to call for assist PRN, will continue to monitor for changes Q1hr and PRN.
[2020-05-11] MEDS: CALCIUM W/VIT D (600MG/400IU) TAB PO SCH (08:41)
[2020-05-11 09:07] VITALS: BP 122/84
[2020-05-11] MEDS: metFORMIN HYDROCHLORIDE 500 MG TAB PO SCH (09:57)
[2020-05-11] MEDS ORDERED: PYRIDOXINE HCL 50 MG TAB PO ONE (10:15)
[2020-05-11] MEDS ORDERED: MECLIZINE HCL 25 MG TAB PO ONE (10:15)
[2020-05-11] MEDS: ENOXAPARIN SOD 60 MG/0.6 ML SYRINGE SC SCH (12:32)
[2020-05-11] MEDS: ZINC SULFATE 220mg CAP or TAB PO SCH (12:32)
[2020-05-11] MEDS: DexAMETHasone 4 MG TAB PO SCH (12:32)
[2020-05-11] MEDS: FAMOTIDINE 20 MG TAB PO SCH (12:32)
[2020-05-11] MEDS: CHOLECALCIFEROL (VITD3) 1,000IU=25mCg TAB PO SCH (12:32)
[2020-05-11 13:00] VITALS: BP 106/64
[2020-05-11 13:05] VITALS: BP 106/64
--- NOTE | 2020-05-11 14:49 | NUR ---
RT NOTE: MDI TX GIVEN WITH SPACER. NO SIGNS OF DISTRESS NOTED AT THIS TIME. ON 2LNC SPO2 95 HR 102 HR 22. WILL CONTINUE TO MONITOR.
--- NOTE | 2020-05-11 15:52 | NUR ---
TELE BOX 12 SENT BACK TO ICU VIA BULLET SYSTEM.
--- NOTE | 2020-05-11 16:20 | NUR ---
Discharge instructions given as ordered. Encourage to follow up with PMD as instructed. All questions and concerns addressed. Patient verbalized understanding. Medication reconciliation form completed and copy given to patient. IV removed with catheter intact, pressure dressing applied. Telemetry unit returned to ICU. Patient taken to vehicle via wheelchair with all personal belongings, accompanied by staff. No distress noted at time of departure.
== END 2020-05-11 16:00 | disposition home or self-care (01) | DRG 871 ==
LOC: ER 17:20 → TELE 17:21 → TELE-WESTW 22:03 → TELE-EAST 05-04 11:30 → TELE-E-ADS 05-08 17:41
PROVIDERS: ADMIT Hospitalist; ATTEND Internal Medicine
DX: A41.9 Sepsis, unspecified organism (principal); J12.89 Other viral pneumonia; U07.1 COVID-19; J96.01 Acute respiratory failure with hypoxia; I50.33 Acute on chronic diastolic (congestive) heart failure; E44.0 Moderate protein-calorie malnutrition; E87.1 Hypo-osmolality and hyponatremia; N39.0 Urinary tract infection, site not specified; B96.20 Unspecified Escherichia coli [E. coli] as the cause of diseases classified elsewhere; E11.65 Type 2 diabetes mellitus with hyperglycemia; E78.5 Hyperlipidemia, unspecified; E83.51 Hypocalcemia; I11.0 Hypertensive heart disease with heart failure; R55 Syncope and collapse; T38.0X5A Adverse effect of glucocorticoids and synthetic analogues, initial encounter; Y92.89 Other specified places as the place of occurrence of the external cause; Z83.3 Family history of diabetes mellitus; Z68.27 Body mass index [BMI] 27.0-27.9, adult
CPT/HCPCS: 36415; 36600; 71045; 80048; 80053; 80061; 80076; 81001; 82728; 82805; 82962; 83036; 83605; 83615; 83735; 83880; 84100; 84484; 84550; 85025; 85379; 85610; 85652; 85730; 86141; 87040; 87070; 87086; 87088; 87186; 87804; 87880; 93005; 94640; G0378; J0696; J1815; J2405; J7060

== ENCOUNTER 2020-08-31 11:57 | Emergency (ER) | payer OTHER, SELFPAY ==
[~2020-08-31] VITALS: Ht 144.8 cm; Wt 59.0 kg
[~2020-08-31 11:57] MED LIST: ATOR10TA52 PO; GLIP10TA9 PO; LOSA-69 PO; METF-370 PO; MULT1TAB61 PO; ONDA-144 PO
[2020-08-31] MEDS ORDERED: SODIUM CHLORIDE 0.9% 1,000 ML IV ONE (12:15)
[2020-08-31] MEDS ORDERED: cloNIDine HCL 0.1 MG TAB PO ONE (12:15)
[2020-08-31 13:06] LABS: Basophils # (auto) 0 10 ^3/uL (0-0.2); Basophils % (auto) 0.6 % (0.0-2.0); Eosinophils # (auto) 0.2 10 ^3/uL (0-0.8); Eosinophils % (auto) 2.5 % (0.0-7.0); Hematocrit 34.5 % (36.0-46.0); Hemoglobin 11.7 g/dL (12.2-16.2); Lymphocytes # (auto) 3.4 10 ^3/uL (0.4-5.4); Lymphocytes % (auto) 52.5 % (10.0-50.0); Mean Corpuscular Hemoglobin 29.2 pg (28.0-32.0); Mean Corpuscular Hgb Conc. 33.9 g/dL (32.0-36.0); Mean Corpuscular Volume 86.3 fL (80.0-100.0); Monocytes # (auto) 0.6 10 ^3/uL (0-1.3); Monocytes % (auto) 8.9 % (0.0-12.0); Neutrophils # (auto) 2.3 10 ^3/uL (1.6-8.6); Neutrophils % (auto) 35.5 % (37.0-80.0); Nucleated Red Blood Cells % 0.1 %; Platelet Count (auto) 281 10^3/uL (140-450); Red Cell Distribution Width 13.8 % (11.8-14.3); White Blood Cell 6.5 10^3/uL (4.4-10.8)
[2020-08-31 13:26] LABS: Chloride 103 mmol/L (98-107); Potassium 3.2 mmol/L (3.5-5.1); Sodium 137 mmol/L (136-145)
[2020-08-31 13:35] LABS: Alanine Aminotransferase 29 U/L (13-56); Alkaline Phosphatase 76 U/L (45-117); Anion Gap 9 (5-15); Aspartate Aminotransferase 18 U/L (15-37); BUN/Creatinine Ratio 16.3; Bilirubin, Total 0.2 mg/dL (0.2-1.0); Blood Urea Nitrogen 8 mg/dL (7-18); Calcium 8.9 mg/dL (8.5-10.1); Carbon Dioxide 25 mmol/L (21-32); GFR African American 167 mL/min; GFR Non-African American 138 mL/min; Glucose 188 mg/dL (74-106); Total Protein 6.6 g/dL (6.4-8.2)
[2020-08-31 14:15] LABS: Urine Bacteria FEW /hpf (None Seen); Urine Blood Negative /uL (Negative); Urine Specific Gravity 1.004 (1.001-1.035); Urine WBC 1 /hpf (0 - 5)
[2020-08-31 14:35] VITALS: BP 153/56
== END 2020-08-31 15:36 | disposition home or self-care (01) ==
LOC: ER 11:57 → EDBD 11:57 → ER 15:36
DX: M25.511 Pain in right shoulder (principal); M54.2 Cervicalgia; R51.9 Headache, unspecified; R07.81 Pleurodynia; I10 Essential (primary) hypertension; E11.65 Type 2 diabetes mellitus with hyperglycemia; E78.5 Hyperlipidemia, unspecified; Z88.8 Allergy status to other drugs, medicaments and biological substances; Z79.84 Long term (current) use of oral hypoglycemic drugs; Z79.899 Other long term (current) drug therapy; W18.39XA Other fall on same level, initial encounter; Y93.89 Activity, other specified; Y92.89 Other specified places as the place of occurrence of the external cause; Y99.8 Other external cause status
CPT/HCPCS: 36415; 70450; 71101; 72125; 72170; 73030; 80053; 81001; 84484; 85025; 93005; 96360